=== PATIENT | female | born 1980 | race Asian ===

== ENCOUNTER 2017-08-09 23:00 | Inpatient (IN) | payer OTHER ==
[~2017-08-09] VITALS: Ht 157.5 cm; Wt 65.8 kg
[~2017-08-09 23:00] MED LIST: IBUP-974 PO; PRETAB PO
[2017-08-09] MEDS ORDERED: LACTATED RINGERS 1,000 ML IV SCH (23:42)
[2017-08-09] MEDS ORDERED: OXYTOCIN 20 UNITS in LACTATED RINGERS 1,000 ML IV SCH (23:42)
[2017-08-09] MEDS ORDERED: OXYTOCIN 10 UNITS/ML VIAL IM ONE (23:45)
[2017-08-09] MEDS ORDERED: NALBUPHINE 10 MG/ML AMP IVP PRN (23:45)
[2017-08-09] MEDS ORDERED: PROMETHAZINE 25 MG/ML VIAL IVP ONE (23:45)
[2017-08-10] MEDS ORDERED: MISOPROSTOL 25 MCG TAB PO SCH
[2017-08-10] MEDS ORDERED: MISOPROSTOL 25 MCG TAB ONE (00:33)
[2017-08-10] MEDS ORDERED: NALBUPHINE 10 MG/ML AMP IVP PRN (00:35)
[2017-08-10 00:55] LABS: APPEARANCE,URINE CLEAR (CLEAR); BILIRUBIN,URINE NEGATIVE (NEGATIVE); BLOOD, URINE NEGATIVE (NEGATIVE); COLOR,URINE YELLOW (YELLOW); LEUKOCYTE ESTERASE ,URINE NEGATIVE (NEGATIVE); NITRITE, URINE NEGATIVE (NEGATIVE); PH,URINE 7.5 (5.0-9.0); UGLUCOSE NEGATIVE (NEGATIVE)
[2017-08-10 01:00] VITALS: BP 105/59
[2017-08-10] MEDS ORDERED: IRON (01:40)
[2017-08-10] MEDS ORDERED: INFLUENZA VIRUS VACCINE QUAD 0.5 ML SYR IMVAC SCH (01:50)
[2017-08-10 02:04] LABS: BASOPHILS # (AUTO) 0.1 K/uL (0.00-0.22); BASOPHILS % (AUTO) 0.8 % (0.0-2.0); EOSINOPHILS # (AUTO) 0.1 K/uL (0-0.4); EOSINOPHILS % (AUTO) 0.6 % (0.0-4.0); HEMATOCRIT 34.6 % (36-48); HEMOGLOBIN 11.6 g/dL (12.0-16.0); LYMPHOCYTES # (AUTO) 1.3 K/uL (2.5-16.5); LYMPHOCYTES % (AUTO) 15.5 % (20.5-51.1); MEAN CORPUSCULAR HEMOGLOBIN 32 pg (27-31); MEAN CORPUSCULAR HGB CONC 33 g/dL (33-37); MEAN CORPUSCULAR VOLUME 96.3 fL (80-94); MONOCYTES # (AUTO) 0.5 K/uL (0.8-1.0); MONOCYTES % (AUTO) 6.4 % (1.7-9.3); NEUTROPHILS # (AUTO) 6.5 K/uL (1.8-7.7); NEUTROPHILS % (AUTO) 76.7 % (42.2-75.2); PLATELET COUNT (AUTO) 192 K/uL (140-450); RED BLOOD CELL COUNT(AUTO) 3.59 MIL/uL (4.20-5.40); RED CELL DISTRIBUTION WIDTH 14.3 % (11.6-13.7); WHITE BLOOD COUNT (AUTO) 8.5 K/uL (4.8-10.8)
[2017-08-10] MEDS ORDERED: OXYTOCIN 10 UNITS/ML VIAL IM PRN (02:40)
[2017-08-10] MEDS ORDERED: METHYLERGONOVINE 0.2 MG/ML AMP IM PRN (02:40)
[2017-08-10] MEDS ORDERED: IBUPROFEN 800 MG TAB PO PRN (02:40)
[2017-08-10] MEDS ORDERED: MEASLES, MUMPS, AND RUBELLA 1 VIAL SQVAC PRN (02:40)
[2017-08-10] MEDS ORDERED: TEMAZEPAM 15 MG CAP PO PRN (02:40)
[2017-08-10] MEDS ORDERED: HYDROcodone/APAP 5/325 MG 1 TAB TAB PO PRN (02:40)
[2017-08-10] MEDS ORDERED: BENZOCAINE/MENTHOL 20%-0.5% 60 GM CAN TP PRN (02:40)
[2017-08-10] MEDS ORDERED: oxyCODONE/APAP 5/325 MG 1 TAB TAB PO PRN (02:40)
[2017-08-10] MEDS ORDERED: OXYTOCIN 20 UNITS/LR PREMIX 1,000 ML IV ONE (05:28)
[2017-08-10] MEDS ORDERED: NALBUPHINE HYDROCHLORIDE 10 MG/ML VIAL ONE (06:57)
[2017-08-10] MEDS ORDERED: PROMETHAZINE 25 MG/ML VIAL ONE (06:58)
[2017-08-10] MEDS ORDERED: OXYTOCIN 10 UNITS/ML VIAL ONE (07:29)
[2017-08-10] MEDS ORDERED: LIDOCAINE MPF 1% - **ER/OR** 0 ML ONE (07:32)
[2017-08-10] MEDS ORDERED: LIDOCAINE 2% 1000 MG/50 ML VIAL INJ ONE (07:35)
[2017-08-10 10:27] LABS: RAPID PLASMA REAGIN NON-REACTIVE (Non Reactiv)
--- NOTE | 2017-08-10 11:02 | NUR ---
PATIENT HAS BEEN SCREENED AND CATEGORIZED LOW NUTRITION RISK. PATIENT WILL BE SEEN WITHIN 7 DAYS OF ADMISSION. 08/16/[address]
[2017-08-10] MEDS ORDERED: DOCUSATE SOD/SENNA 50/8.6 MG 1 TAB PO SCH (21:00)
[2017-08-10] MEDS ORDERED: OXYTOCIN 20 UNITS in LACTATED RINGERS 1,000 ML IV SCH (23:42)
[2017-08-11] MEDS ORDERED: MISOPROSTOL 25 MCG TAB PO PRN
[2017-08-11 06:50] LABS: HEMATOCRIT 31.9 % (36-48); HEMOGLOBIN 10.6 g/dL (12.0-16.0)
[2017-08-11] MEDS ORDERED: IBUP-1842 PO (12:10)
== END 2017-08-11 13:45 | disposition home or self-care (01) | DRG 775 ==
LOC: MLD 23:00 → MFCC 08-10 10:21
PROVIDERS: ADMIT Obstetrics & Gynecology; ATTEND Obstetrics & Gynecology
PROC: 0HQ9XZZ Repair Perineum Skin, External Approach (ICD-10-PCS; principal; 2017-08-10)
PROC: 10E0XZZ Delivery of Products of Conception, External Approach (ICD-10-PCS; 2017-08-10)
PROC: 10907ZC Drainage of Amniotic Fluid, Therapeutic from Products of Conception, Via Natural or Artificial Opening (ICD-10-PCS; 2017-08-10)
PROC: 3E0234Z Introduction of Serum, Toxoid and Vaccine into Muscle, Percutaneous Approach (ICD-10-PCS; 2017-08-10)
DX: O70.0 First degree perineal laceration during delivery (principal); Z23 Encounter for immunization; Z37.0 Single live birth; Z3A.39 39 weeks gestation of pregnancy
CPT/HCPCS: 36415; 59409; 81003; 85018; 85025; 86592; 86886; 86900; 86901; 90715; J2001; J2300; J2550; J2590; J7120